=== PATIENT | female | born 1960 | race American Indian/Alaskan Native ===

== ENCOUNTER 2019-10-09 18:31 | Emergency (ER) | payer OTHER ==
[2019-10-09] MEDS ORDERED: ASPIRIN 325 MG TAB PO ONE (18:46)
[2019-10-09 19:18] LABS: Basophils # (Auto) 0.1 K/mm3 (0.0-0.1); Basophils % (Auto) 1.3 % (0.0-1.8); Eosinophils # (Auto) 0.1 K/mm3 (0.0-0.4); Hematocrit 39.6 % (30.3-42.9); Hemoglobin 13.4 gm/dl (10.1-14.3); Lymphocytes # (Auto) 3.4 K/mm3 (1.2-5.4); Lymphocytes % (Auto) 33.7 % (13.4-35.0); Mean Corpuscular HGB Conc 34 % (30-34); Mean Corpuscular Volume 107 fl (79-97); Monocytes % (Auto) 10.3 % (0.0-7.3); Platelet Count 180 K/mm3 (140-440); Red Cell Distribution Width 13.6 % (13.2-15.2)
[2019-10-09 19:29] LABS: BUN/Creatinine Ratio 13; Blood Urea Nitrogen 9 mg/dL (7-17); Calcium 8.9 mg/dL (8.4-10.2)
--- NOTE | 2019-10-09 19:33 | XRay Report ---
CHEST 1 VIEW INDICATION / CLINICAL INFORMATION: MAIN. COMPARISON: None available. FINDINGS: SUPPORT DEVICES: None. HEART / MEDIASTINUM: No significant abnormality. LUNGS / PLEURA: No significant pulmonary or pleural abnormality. No pneumothorax. ADDITIONAL FINDINGS: No significant additional findings. IMPRESSION: 1. No acute findings. Signer Name: Apple Mcmanus MD Signed: 10/09/2019 7:28 PM Workstation Name: [id number]
--- NOTE | 2019-10-09 20:33 | Emergency Department Report ---
ED Chest Pain HPI - General Chief Complaint: Chest Pain Stated Complaint: CP PUI?: No Time Seen by Provider: 10/09/19 20:03 Source: patient, RN notes reviewed Mode of arrival: Ambulatory Limitations: No Limitations - History of Present Illness Initial Comments: During the history and physical examination, I am adjunct business instructor and escorted by nurse Baron Romero She is a 59-year-old female who is not known to myself previously. Her primary care doctor is within the [facility] network. She denies chronic medical conditions. She denies family history of DVT, pulmonary embolism, coronary artery disease. She denies personal history of pulmonary embolism, coronary artery disease. She presents to the ER with a complaint of central chest wall pain, started at 4:00 PM, constant, increases with palpation and deep inspiration, and decreases with rest. To be, she specifically denies that the chest pain does not radiate anywhere, there is no vomiting, there is no diaphoresis, there is no exertional shortness of breath. She denies DVT and pulmonary embolism risk factors. Denies headache, neck pain, abdominal pain, urinary symptoms, extremity weakness and or numbness. She is right-hand dominant. No recent trauma. No recent repetitive ranges of motion. MD Complaint: chest pain -: Gradual, hour(s) Onset: during rest Pain Location: other Pain Radiation: none Severity: moderate Quality: aching Consistency: intermittent Improves With: rest Worsens With: inspiration, palpation Aspirin use within the Past 7 Days: (0) No - Related Data Previous Rx's Medication Instructions Recorded Last Taken Type Acetaminophen [Non-Aspirin Extra 500 mg PO Q6HR PRN #30 tablet 10/09/19 Unknown Rx Strength] Aspirin [Aspirin BABY CHEW TAB] 81 mg PO QDAY #30 tab.chew 10/09/19 Unknown Rx Famotidine [Pepcid] 20 mg PO BID #60 tablet 10/09/19 Unknown Rx Ibuprofen [Motrin] 600 mg PO Q8H PRN #30 tablet 10/09/19 Unknown Rx Allergies Allergy/AdvReac Type Severity Reaction Status Date / Time No Known Allergies Allergy Unverified 10/09/19 18:41 Heart Score - HEART Score History: Slightly suspicious EKG: Non-specific Age: 45-65 Risk factors: No known risk factors Troponin: < normal limit HEART Score: 2 - Critical Actions Critical Actions: 0-3 pts:0.9-1.7%risk of adverse cardiac event.Candidate for discharge ED Review of Systems ROS: Stated complaint: CP Other details as noted in HPI Constitutional: denies: fever Eyes: denies: eye discharge ENT: denies: epistaxis Respiratory: denies: wheezing Cardiovascular: chest pain. denies: syncope Gastrointestinal: denies: abdominal pain, nausea Genitourinary: denies: dysuria Musculoskeletal: myalgia Skin: denies: lesions Neurological: denies: weakness Psychiatric: as per HPI Hematological/Lymphatic: denies: easy bleeding ED Past Medical Hx - Past Medical History Previous Medical History?: No - Surgical History Additional Surgical History: BILATERAL KNEE - Social History Smoking Status: Never Smoker Substance Use Type: None - Medications Home Medications: Home Medications Medication Instructions Recorded Confirmed Last Taken Type Acetaminophen [Non-Aspirin Extra 500 mg PO Q6HR PRN #30 tablet 10/09/19 Unknown Rx Strength] Aspirin [Aspirin BABY CHEW TAB] 81 mg PO QDAY #30 tab.chew 10/09/19 Unknown Rx Famotidine [Pepcid] 20 mg PO BID #60 tablet 10/09/19 Unknown Rx Ibuprofen [Motrin] 600 mg PO Q8H PRN #30 tablet 10/09/19 Unknown Rx ED Physical Exam - General Limitations: No Limitations General appearance: alert, anxious - Head Head exam: Present: atraumatic, normocephalic - Eye Eye exam: Present: normal appearance, EOMI. Absent: nystagmus - ENT ENT exam: Present: normal exam, normal orophraynx, mucous membranes moist, normal external ear exam - Neck Neck exam: Present: normal inspection, full ROM. Absent: tenderness, meningismus - Respiratory Respiratory exam: Present: normal lung sounds bilaterally, chest wall tenderness. Absent: respiratory distress, wheezes, rales, rhonchi, stridor - Cardiovascular Cardiovascular Exam: Present: regular rate, normal rhythm, normal heart sounds. Absent: bradycardia, tachycardia, irregular rhythm, systolic murmur, diastolic murmur, rubs, gallop - GI/Abdominal GI/Abdominal exam: Present: soft, normal bowel sounds. Absent: distended, tenderness, guarding, rebound, rigid, pulsatile mass - Extremities Exam Extremities exam: Present: normal inspection, full ROM, normal capillary refill, other (2+ pulses noted in the bilateral upper and lower extremities. There is no palpable cord. negative Homans sign. Muscular compartments are soft. The pelvis is stable.). Absent: pedal edema, calf tenderness - Back Exam Back exam: Present: normal inspection, full ROM. Absent: tenderness, CVA tenderness (R), CVA tenderness (L), paraspinal tenderness, vertebral tenderness - Neurological Exam Neurological exam: Present: alert, oriented X3, normal gait, other (No facial droop. Tongue midline. Extraocular movements intact bilaterally. Facial sensation intact to light touch in V1, V2, V3 distribution bilaterally. 5 and a 5 strength in 4 extremities. Sensation intact to light touch in 4 extremities.). Absent: motor sensory deficit - Psychiatric Psychiatric exam: Present: normal affect, normal mood - Skin Skin exam: Present: warm, dry, intact, normal color. Absent: rash ED Course Vital Signs 10/09/19 10/09/19 10/09/19 18:41 20:52 21:00 Temperature 98 F Pulse Rate 84 82 74 Respiratory 18 16 14 Rate Blood Pressure 116/56 125/68 O2 Sat by Pulse 20 L 98 Oximetry 10/09/19 10/09/19 10/09/19 21:16 21:30 22:00 Temperature Pulse Rate 84 87 68 Respiratory 16 15 19 Rate Blood Pressure 114/72 114/72 97/54 O2 Sat by Pulse 98 99 96 Oximetry - Reevaluation(s) Reevaluation #1: 10/09/19 22:40 Feeling improved. Pain resolved. Sleeping comfortably in her stretcher. Endorses readiness and desire for discharge. Discharge instructions are reviewed. Patient verbalizes understanding. BENNY score - Benny Score Age > 65: (0) No Aspirin use within the Past 7 Days: (0) No 3 or more CAD Risk Factors: (0) No 2 or more Angina events in past 24 hrs: (0) No Known CAD with more than 50% Stenosis: (0) No Elevated Cardiac Markers: (0) No ST Deviation Greater than 0.5mm: (0) No BENNY Score: 0 ED Medical Decision Making - Lab Data Result diagrams: 10/09/19 19:00 10/09/19 19:00 Vital Signs 10/09/19 10/09/19 10/09/19 18:41 20:52 21:00 Temperature 98 F Pulse Rate 84 82 74 Respiratory 18 16 14 Rate Blood Pressure 116/56 125/68 O2 Sat by Pulse 20 L 98 Oximetry 10/09/19 21:16 Temperature Pulse Rate 84 Respiratory 16 Rate Blood Pressure 114/72 O2 Sat by Pulse 98 Oximetry Lab Results 10/09/19 10/09/19 10/09/19 Range/Units 19:00 19:00 21:30 WBC 10.2 (4.5-11.0) K/mm3 RBC 3.70 (3.65-5.03) M/mm3 Hgb 13.4 (10.1-14.3) gm/dl Hct 39.6 (30.3-42.9) % MCV 107 H (79-97) fl MCH 36 H (28-32) pg MCHC 34 (30-34) % RDW 13.6 (13.2-15.2) % Plt Count 180 (140-440) K/mm3 Lymph % (Auto) 33.7 (13.4-35.0) % [place] % (Auto) 10.3 H (0.0-7.3) % Eos % (Auto) Athletic Coach Baso % (Auto) 1.3 (0.0-1.8) % Lymph # 3.4 (1.2-5.4) K/mm3 [place] # 1.0 H (0.0-0.8) K/mm3 Eos # 0.1 (0.0-0.4) K/mm3 Baso # 0.1 (0.0-0.1) K/mm3 Seg Neutrophils % 53.9 (40.0-70.0) % Seg Neutrophils # 5.5 (1.8-7.7) K/mm3 PT 12.8 (12.2-14.9) Sec. INR 0.98 (0.87-1.13) D-Dimer 135.00 (0-234) ng/mlDDU Sodium 137 (137-145) mmol/L Potassium 3.9 (3.6-5.0) mmol/L Chloride 101.3 (98-107) mmol/L Carbon Dioxide 24 (22-30) mmol/L Anion Gap 16 mmol/L BUN 9 (7-17) mg/dL Creatinine 0.7 (0.7-1.2) mg/dL Estimated GFR > 60 ml/min BUN/Creatinine Ratio 13 % Glucose 124 H (65-100) mg/dL Calcium 8.9 (8.4-10.2) mg/dL Troponin T < 0.010 (0.00-0.029) ng/mL - EKG Data -: EKG Interpreted by Ri EKG shows normal: sinus rhythm Rate: normal - EKG Data When compared to previous EKG there are: previous EKG unavailable 10/09/19 22:03 There is no prior EKG available for comparison. EKG #1 shows sinus rhythm, 76 bpm, normal axis, QTC is prolonged, motion artifact, the EKG is not a STEMI. EKG #2 appears to be grossly unchanged from prior. Neither EKG consistent with ST elevation myocardial infarction. - Radiology Data Radiology results: report reviewed, image reviewed Print Report Referring Physician: ED HUNTER Patient Name: MARIBEL THOMPSON Date of : 1960 Sex: Female Report Date: 2019-10-09 Report Status: [place] [address] XRay Report Signed Patient: MARIBEL THOMPSON MR#: [id number] : 1960 Acct:[id number] Age/Sex: 59 / F ADM Date: 10/09/19 Loc: ED Attending Dr: Ordering Physician: SHAY HARRISON MD Date of Service: 10/09/19 Procedure(s): XR chest 1V ap Accession Number(s): [id number] cc: ED MD HUNTER Fluoro Time In Minutes: CHEST 1 VIEW INDICATION / CLINICAL INFORMATION: MAIN. COMPARISON: None available. FINDINGS: SUPPORT DEVICES: None. HEART / MEDIASTINUM: No significant abnormality. LUNGS / PLEURA: No significant pulmonary or pleural abnormality. No pneumothorax. ADDITIONAL FINDINGS: No significant additional findings. IMPRESSION: 1. No acute findings. Signer Name: Apple Mcmanus MD Signed: 10/09/2019 7:28 PM Workstation Name: [id number] Transcribed By: Dictated By: Apple Mcmanus MD Electronically Authenticated By: Apple Mcmanus MD Signed Date/Time: 10/09/191927 DD/ 26 - Medical Decision Making Differential diagnosis, including but not limited to: Costochondritis, pleurisy, pneumonia, pulmonary embolism, coronary artery disease, GERD, gastritis Assessment and plan: 59-year-old female, who is afebrile, with reassuring vital signs, not tachycardic, tachypneic or hypoxic (initial pulse ox is likely documented in error), without DVT or pulmonary embolism risk factors, who is low risk by Wells criteria, with a negative d-dimer, EKG unchanged x2, troponin negative x2, with reassuring chest wall pain that is pleuritic. Patient at low risk for major adverse cardiac event as per heart score. As per this hospital's policy, procedure and protocols, the patient may be referred to our local outpatient cardiology practice, [facility] cardiology, to follow- up within the next few days to complete an outpatient cardiac risk ratification. Explained this to patient, who verbalized understanding. She was treated supportively and symptomatically, had an uneventful stay in the emergency room, and endorsed readiness and reliability to follow-up as an outpatient to complete a cardiac risk ratification Critical care attestation.: If time is entered above; I have spent that time in minutes in the direct care of this critically ill patient, excluding procedure time. ED Disposition Clinical Impression: Pleuritic chest pain Disposition: DC-01 TO HOME OR SELFCARE Is pt being admited?: No Does the pt Need Aspirin: No Condition: Stable Instructions: Pleurisy (ED), Costochondritis (ED) Additional Instructions: Rest, avoid heavy lifting, and avoid strenuous physical activities. Minimize consumption of heavy and spicy foods and alcohol. Take the prescribed medications as needed and directed. Take aspirin on a daily basis. Avoid consumption of alcohol, heavy and spicy foods. Follow-up with a soldering technician within the next 3 to 4 days. For the patient's convenience, numerous local cardiology practices have been listed. The patient may contact any of the local cardiology practices, to arrange outpatient follow-up. In addition, patient's information has been transmitted to [facility] cardiology, where Dr. Rodas works, and the patient may expect a phone call from this group. However, would recommend that the patient reach out to schedule her appointment for the sake of expediency. Return to the emergency room right away with new pain, worsening pain, migration of pain, projectile vomiting, change in mental status, confusion, inability to tolerate liquid feeds, new, worsened or different symptoms not present on the initial emergency room evaluation Prescriptions: Aspirin [Aspirin BABY CHEW TAB] 81 mg PO QDAY #30 tab.chew Ibuprofen [Motrin] 600 mg PO Q8H PRN #30 tablet PRN Reason: Pain Acetaminophen [Non-Aspirin Extra Strength] 500 mg PO Q6HR PRN #30 tablet PRN Reason: Pain , Severe (7-10) Famotidine [Pepcid] 20 mg PO BID #60 tablet Referrals: HIREN JOAQUIN MD [Staff Physician] - 3-5 Days ANASTACIO MARIN MD [Staff Physician] - 3-5 Days [facility] [Provider Group] - 3-5 Days [facility] [Provider Group] - 3-5 Days
[2019-10-09] MEDS ORDERED: SUCRALFATE 1 GM/10 ML ORAL LIQD PO ONE (20:44)
[2019-10-09] MEDS ORDERED: ACETAMINOPHEN 500 MG TAB PO ONE (20:44)
[2019-10-09] MEDS ORDERED: KETOROLAC 30 MG/1 ML INJ IM ONE (20:44)
[2019-10-09 21:53] LABS: INR 0.98 (0.87-1.13)
[2019-10-09 22:17] VITALS: BP 97/54
== END 2019-10-09 23:09 | disposition home or self-care (01) ==
LOC: ED 18:31
DX: R07.89 Other chest pain (principal); M79.18 Myalgia, other site
CPT/HCPCS: 36415; 71045; 80048; 82550; 83735; 84484; 85025; 85379; 85610; 93005; 99284; J1885